=== PATIENT | male | born 1950 | race African-American/Black ===

== ENCOUNTER 2016-12-09 13:47 | Emergency (ER) | payer MEDICARE, MEDICAID ==
[~2016-12-09] VITALS: Ht 182.9 cm; Wt 89.0 kg
[2016-12-09] MEDS ORDERED: SODIUM CHLORIDE 0.9% 10ML VIAL ONE (13:50)
[2016-12-09] MEDS ORDERED: IOHEXOL-350 100 ML BOTTLE ONE (13:50)
[2016-12-09] MEDS ORDERED: SODIUM CHLORIDE 0.9% 1,000 ML IV ONE (14:38)
[2016-12-09] MEDS ORDERED: MORPHINE SULFATE 4 MG/ML CPJ (NOT FOR IM USE) IV STA (14:38)
[2016-12-09] MEDS ORDERED: ONDANSETRON HCL 4MG/2ML VIAL IV STA (14:38)
[2016-12-09 15:21] LABS: BASOPHILS % 0.3 % (0.0-2.0); EOSINOPHILS % 1.5 % (0.0-5.0); HEMATOCRIT. 48.6 % (42.0-52.0); HEMOGLOBIN. 16.5 g/dL (14.0-18.0); INR 1.1; LYMPHOCYTES % 19.7 % (20.0-50.0); MEAN CORPUSCULAR HEMOGLOBIN 28.5 pg (28.0-32.0); MEAN CORPUSCULAR VOLUME 83.7 fL (80.0-94.0); MEAN PLATELET VOLUME 7.6 fl (7.4-10.4); MONOCYTES % 7.1 % (2.0-8.0); NEUTROPHILS % 71.4 % (40.0-76.0); PLATELET 205 x1000/uL (130-400); PROTHROMBIN TIME 11.3 sec; RED CELL DISTRIBUTION WIDTH 14.2 % (11.6-14.6)
[2016-12-09 15:23] LABS: CHLORIDE 104 mEq/L (98-107)
[2016-12-09 15:29] LABS: CARBON DIOXIDE 24 mEq/L (21-32); ETHANOL BLOOD < 10 mg/dL
[2016-12-09 15:31] LABS: CREATINE KINASE 224 IU/L (39-308); TROPONIN I < 0.02 ng/mL (0.00-0.04)
[2016-12-09 15:34] LABS: PHENYTOIN < 0.4 ug/mL (10-20)
[2016-12-09 15:38] LABS: CARBAMAZEPINE < 0.5 ug/mL (4-12); PHENOBARBITAL < 2.1 ug/mL (15.0-40.0); VALPROIC ACID < 3.0 ug/mL (50-100)
[2016-12-09] MEDS ORDERED: ONDANSETRON HCL 4MG/2ML VIAL IV ONE ×2 (18:15→21:00)
[2016-12-09] MEDS ORDERED: MORPHINE SULFATE 4 MG/ML CPJ (NOT FOR IM USE) IV ONE ×2 (18:15→21:00)
[2016-12-09] MEDS ORDERED: LABETALOL 5MG/ML SYR 20 MG/4 ML SYRINGE IV ONE ×2 (19:15→21:00)
[2016-12-09] MEDS ORDERED: LABETALOL HCL 20MG/4ML CARPUJECT IV PRN (23:00)
[2016-12-09] MEDS ORDERED: MORPHINE SULFATE 4 MG/ML CPJ (NOT FOR IM USE) IV PRN (23:00)
[2016-12-09] MEDS ORDERED: LABETALOL 5MG/ML SYR 20 MG/4 ML SYRINGE IV PRN (23:30)
[2016-12-10 00:40] VITALS: BP 144/73
== END 2016-12-10 00:52 | disposition short-term general hospital (02) ==
LOC: ER 14:44
DX: I67.1 Cerebral aneurysm, nonruptured (principal); I10 Essential (primary) hypertension; J45.909 Unspecified asthma, uncomplicated; F17.200 Nicotine dependence, unspecified, uncomplicated
CPT/HCPCS: 36415; 70496; 71010; 80053; 80156; 80165; 80184; 80185; 82550; 84443; 84484; 85025; 85610; 85651; 93005; 96361; 96374; 96375; 96376; 99285; 99406; A4216; G0482; J2270; J2405; J3490; J7030; Q9967

== ENCOUNTER 2024-11-18 15:24 | Emergency (ER) | payer MEDICAID ==
[~2024-11-18] VITALS: Ht 177.8 cm; Wt 90.0 kg
[2024-11-18 15:25] VITALS: O2SAT 95
[2024-11-18] MEDS: SODIUM CHLORIDE 0.9% 500 ML IV ONE (16:00)
[2024-11-18 16:09] LABS: BASOPHILS % 0.4 % (0.0-2.0); EOSINOPHILS % 11.0 % (0.0-5.0); HEMATOCRIT. 47.7 % (42.0-52.0); HEMOGLOBIN. 15.9 g/dL (14.0-18.0); LYMPHOCYTES % 22.3 % (20.0-50.0); MEAN PLATELET VOLUME 7.0 fl (7.4-10.4); MONOCYTES % 7.7 % (2.0-8.0); NEUTROPHILS % 58.6 % (40.0-76.0); PLATELET 239 x1000/uL (130-400); RED BLOOD CELL COUNT 5.45 mill/uL (4.7-6.1); RED CELL DISTRIBUTION WIDTH 14.0 % (11.6-14.6)
[2024-11-18 16:18] LABS: INR 1.0
[2024-11-18 16:22] LABS: CREATININE 1.1 mg/dL (0.6-1.3); ETHANOL BLOOD < 10 mg/dL (<10); UREA NITROGEN BLOOD 15 mg/dL (9-23)
[2024-11-18 16:23] LABS: TROPONIN I HIGH SENSITIVITY 14 ng/L (3.0-53)
[2024-11-18 18:22] LABS: TROPONIN I HIGH SENSITIVITY 14 ng/L (3.0-53)
[2024-11-18 18:52] VITALS: BP 128/67; PULSE 73; RESP 17; TEMP 36.5; O2SAT 100
== END 2024-11-18 18:52 | disposition home or self-care (01) ==
LOC: ER 15:24 → EDBEDREQ 16:21 → CANBEDREQ 18:34 → ER 18:52
DX: S80.211A Abrasion, right knee, initial encounter (principal); R55 Syncope and collapse; J45.909 Unspecified asthma, uncomplicated; F17.200 Nicotine dependence, unspecified, uncomplicated; R06.02 Shortness of breath; Z91.013 Allergy to seafood; W18.30XA Fall on same level, unspecified, initial encounter; Y93.89 Activity, other specified; Y92.89 Other specified places as the place of occurrence of the external cause; Y99.8 Other external cause status
CPT/HCPCS: 80048; 80320; 83880; 85025; 85610; 85730; 84484; 36415; 71045; 93005; 99285; J7040; 96360; 96361; G0480